=== PATIENT | male | born 1965 | race Asian ===

== ENCOUNTER 2019-11-17 16:22 | Inpatient (IN) | payer MEDICAID, SELFPAY ==
[~2019-11-17] VITALS: Ht 167.6 cm; Wt 63.5 kg
[2019-11-17 16:34] VITALS: Ht 167.6 cm; Wt 63.5 kg
--- NOTE | 2019-11-17 16:47 | NUR ---
PT BIB SELF, C/O COUGH X10 DAYS, SOB, FEVER, CHEST PAIN SINCE TODAY. PT DENIES TRAVELING OR IN CONTACT WITH ANY ONE SICK. PT PALCED ON AUTO BODY REPAIR TECHNICIAN, PULSE OX, AND GOWN. DR. CAPONE AT BEDSIDE FOR MSE. PT MINIMAL SWEDISH SPEAKER, SPEAKS VITNAMESE. PLACED ON DROPLET ISOLATION, PT WEARING MASK. PT AAOX4, RESTING IN BED WITH EYES CLOSED, GASPING FOR AIR. SPEAKING WITHOUT DIFFICULTY TO ELY WILLSON IN VITNAMESE. WILL CONTINUE TO MONITOR.
--- NOTE | 2019-11-17 17:01 | NUR ---
AWAITING TO COLLECT URINE FROM PT, URINAL AT BEDSIDE.
--- NOTE | 2019-11-17 17:01 | NUR ---
LAB AT BEDSIDE.
--- NOTE | 2019-11-17 17:13 | NUR ---
PT SPO2 AT 95% ROOM AIR AT THIS TIME.
[2019-11-17 17:24] LABS: PLATELET COUNT 356 x10^3mcL (130-400); RED CELL DISTRIBUTION WIDTH 14.1 % (11.5-14.5)
--- NOTE | 2019-11-17 17:40 | NUR ---
XRAY AT BEDSIDE.
[2019-11-17 17:51] LABS: microscopic required? YES; urine erythrocyte TRACE (NEGATIVE)
[2019-11-17 18:03] LABS: CALCIUM 8.2 mg/dL (8.5-10.1); CARBON DIOXIDE 25.7 mmol/L (21-32); CHLORIDE SERUM 98 mmol/L (98-107); CREATININE SERUM 1.1 mg/dL (0.7-1.3); GFR1 > 60 mL/min; GLUCOSE SERUM 116 mg/dL (74-106); POTASSIUM SERUM 3.8 mmol/L (3.5-5.1); SODIUM SERUM 132 mmol/L (136-145)
[2019-11-17 18:08] LABS: ALBUMIN 1.6 g/dL (3.4-5.0); ALKALINE PHOSPHATASE 70 U/L (46-116); ALT/SGPT 39 U/L (16-63); AST/SGOT 58 U/L (15-37); BILIRUBIN TOTAL 1.1 mg/dL (0.20-1.00); LACTIC DEHYDROGENASE (LDH) 191 U/L (100-190); TOTAL PROTEIN, SERUM 6.2 g/dL (6.4-8.2)
[2019-11-17 18:13] LABS: BAND NEUTROPHIL 4 % (0-10); METAMYELOCTE 1 % (0-2); MONOCYTE 2 % (0-7); MYELOCYTE 1 % (0-2); PLATELET MORPHOLOGY PLATELETS NORMAL; SEGMENTED NEUTROPHILS 87 % (37-75); rbc morphology (normal/abnorm) NORMAL (NORMAL)
[2019-11-17 18:34] LABS: C REACTIVE PROTEIN 33.1 mg/dL (<=0.9)
--- NOTE | 2019-11-17 18:42 | NUR ---
MADE DR. CAPONE AWARE OF PT 102.1 F FEVER, PER MD TO GIVE TYLENOL.
--- NOTE | 2019-11-17 19:14 | NUR ---
REPORT GIVEN TO AIRAM BARRIGA
--- NOTE | 2019-11-17 19:22 | NUR ---
REPORT GIVEN TO FABIO BARRIGA
--- NOTE | 2019-11-17 19:45 | NUR ---
RECEIVED PT VIA GURJOSEPHINE FROM E/D, ACCOMPANIED BY RN AND TRANSPORTER. PT ABLE TO TRANSFER HIMSELF FROM GURNEY TO BED, BUT BECAME OBTUNDED AFTERWARDS; PT ONLY RESPONDS TO PAIN; UNABLE TO INTERVIEW EVEN W/ BANQUET SET UP PERSON PHONE PLACED NEXT TO EAR; RECEIVED THE REST OF INFORMATION FROM DAUGHTER, PACO, THROUGH TELEPHONE CALL; DAUGHTER REVEALED THAT PT SMOKES 1/2 PPD, AND DOES UNKNOWN DRUGS, AND WISHES FOR HER FATHER TO BE TESTED. ON TELE # 4, SR + PACs, HR 78, NO S/S CHEST PAIN OR DISCOMFORT AT THIS TIME. SCD BY BEDSIDE. LEFT LUNG CLEAR, RIGHT LUNG DIM, CHEST RISING EVENLY, SHALLOW BREATHING, 2LNC, 95%. ABD SOFT, FLAT, NON-TENDER, NORMOACTIVE BOWEL SOUNDS X 4 QUADS, LAST BM UNKNOWN, ASPIRATION PRECAUTIONS IN PLACE 2/2 ALOC. AMBULATORY @ BASELINE, FALL RISK PROTOCOL IN PLACE. IV SITE LFA 20G, CDI. UNABLE TO ORIENT PT TO ANYTHING D/T ALOC. SIDE RAILS UP X 2, BED IN LOW POSITION, CALL LIGHT WITHIN REACH. WILL ENDORSE TO NITHYA GUZMAN.
[2019-11-17 20:44] VITALS: BP 99/68
--- NOTE | 2019-11-17 22:45 | NUR ---
PT WOKE UP AND TALKING. PT ORIENTED TO PERSON AND PLACE AT THIS TIME AND HE IS TALKING ABOUT HIS DAUGHTER. PT REQUESTED TO HAVE TV TURNED ON. NO SOB NOTED AT THIS TIME.
[2019-11-18 03:16] LABS: AMPHETAMINE QUAL UR NONE DETECTED (See below)
[2019-11-18 05:28] VITALS: BP 135/79
--- NOTE | 2019-11-18 05:30 | NUR ---
PT SLEPT IN LONG INTERVALS. HE HAD NO EPISODE OF SOB OR RESP DISTRESS. PT BECAME MORE AWAKE AND ORIENTED LATER IN THE NIGHT. HE HAD NO C/O PAIN. ALL NEEDS ATTENDED TO. PT ON DROPLET ISOLATION.
--- NOTE | 2019-11-18 07:25 | NUR ---
RECEIVED PT FROM GAYATHRI BARRIGA. PT IS AWAKE, A/OX4, LAYING IN BED. PT ON 2L NC, NO SOB OR DISTRESS NOTED. IV D5NS 80 CC/HR IN LFA. CDI AND PATENT. PT DENIES PAIN AND CHEST PAIN. PT IS STABLE AT THIS TIME. ALL SAFETY AND COMFORT MEASURES IN PLACE. BED IN LOW POSITION, 2 SIDE RAILS UP, CALL LIGHT WITH IN REACH. ALL QUESTIONS AND CONCERNS ADDRESSED. WILL CONTINUE TO MONITOR PT.
[2019-11-18 07:46] LABS: ALKALINE PHOSPHATASE 81 U/L (46-116); ALT/SGPT 31 U/L (16-63); AST/SGOT 57 U/L (15-37); BILIRUBIN TOTAL 1.2 mg/dL (0.20-1.00); CARBON DIOXIDE 25.1 mmol/L (21-32); CHLORIDE SERUM 104 mmol/L (98-107); CREATININE SERUM 0.9 mg/dL (0.7-1.3); GFR1 > 60 mL/min; GLUCOSE SERUM 108 mg/dL (74-106); SODIUM SERUM 139 mmol/L (136-145)
[2019-11-18 07:48] LABS: ALBUMIN 1.4 g/dL (3.4-5.0); TOTAL PROTEIN, SERUM 5.7 g/dL (6.4-8.2)
[2019-11-18 08:00] VITALS: BP 121/83
--- NOTE | 2019-11-18 09:10 | NUR ---
IN TO ADMINISTER SCHEDULED MEDS, TAKE VITALS, AND DELIVER BREAKFAST. ALL QUESTIONS AND CONCERNS ADDRESSED. WILL CONTINUE TO MONITOR PT.
[2019-11-18 09:30] LABS: BASOPHIL % 0.2 % (0-2); PLATELET COUNT 353 x10^3mcL (130-400); RED CELL DISTRIBUTION WIDTH 12.9 % (11.5-14.5)
[2019-11-18 12:00] VITALS: BP 130/96
--- NOTE | 2019-11-18 17:40 | NUR ---
IN TO SEE PT, ASSESS VITAL SIGNS, AND DELIVER DINNER. PT IS STABLE. ALL COCNERNS AND NEEDS MET. WILL CONTINUE TO MONITOR PT.
[2019-11-18 17:44] VITALS: BP 143/91
--- NOTE | 2019-11-18 17:45 | NUR ---
IN TO SEE PT TO ADMINISTER PAIN MEDICATION FOR PAIN IN CHEST AND BACK. DAUGHTER, AZIZA CALLED AND SPOKE TO ME ABOUT GETTING A SPINNER FIXER FOR THE PT. DAUGHTER WANTED AN UPDATE ON THE POC. ALL QUESTIONS AND CONCERNS ADDRESSED. WILL CONTINUE TO MONITOR PT.
--- NOTE | 2019-11-18 19:20 | NUR ---
RECEIVED PT RESTING IN BED, NO ACUTE DISTRESS NOTED. PT AOX4, DENIES JARVIS/DIZZINESS. TELE #4, SR, DENIES CP. PULSES PALPABLE BILAT, DENIES NUMBNESS/TINGLING IN FEET. RESP EVEN AND UNLABORED ON 2LNC, COURSE CRACKLES RT LOBE, CTA LEFT LOBE. NONPRODUCTIVE COUGH. PT ON CONTINUOUS PULSE OX. DENIES ABD PAIN. VOIDS WITH URINAL AT BEDSIDE, ORANGE/PEACH URINE. AMB AT BASELINE. SKIN INTACT .IV SITE TO THE GIANNI, D5NS @ 80ML/HR. NO REDNESS, SWELLING OR PAIN NOTED. PT ON ZITHROMAX AND ROCPEHIN. ALL COMFORT AND SAFETY MEASURES PROVIDED FOR, CALL LIGHT WITHIN REACH, BED IN LOWEST POSITION, WILL CONTINUE TO MONITOR.
--- NOTE | 2019-11-18 19:30 | NUR ---
REPORT GIVEN TO ROSALIO BARRIGA. PT REMAINED STABLE THROUGHT SHIFT. ALL QUESTIONS AND COCNERNS ADDRESSED. ALL CARES ENDORSED.
[2019-11-18 20:45] VITALS: BP 11/82; BP 111/82
--- NOTE | 2019-11-19 00:30 | NUR ---
PT REPORTING JARVIS, WILL MEDICATE WITH TYLENOL.
[2019-11-19 01:10] VITALS: BP 130/89
[2019-11-19 05:00] VITALS: BP 122/84
--- NOTE | 2019-11-19 05:15 | NUR ---
PT RESTED IN INTERVALS DURING SHIFT, NO ACUTE CHANGES OCCURRING OVERNIGHT. PT REMAINS ON 2LNC, REPORTS INTERMITTENT SOB ALTHOUGH O2 SAT REMAINS WNL. PT REMAINS AFEBRILE, ABLE TO AMBULATE OT THE RESTROOM WITHOUT ASSISTANCE. IV SITE REMAINS PATENT, NO REDNESS, SWELLING OR PAIN NOTED. PT REPORTS DIARRHEA X2. AL COMFORT AND SAFETY MEASURES PROVIDED FOR, CALL LIGHT WITHIN REACH, BED IN LOWEST POSITION, WILL CONTINUE TO MONITOR.
[2019-11-19 06:45] LABS: PLATELET COUNT 300 x10^3mcL (130-400); RED CELL DISTRIBUTION WIDTH 14.3 % (11.5-14.5)
[2019-11-19 06:46] LABS: ALKALINE PHOSPHATASE 106 U/L (46-116); ALT/SGPT 33 U/L (16-63); AST/SGOT 62 U/L (15-37); BILIRUBIN TOTAL 0.4 mg/dL (0.20-1.00); CALCIUM 8.2 mg/dL (8.5-10.1); CARBON DIOXIDE 25.9 mmol/L (21-32); CHLORIDE SERUM 102 mmol/L (98-107); CREATININE SERUM 0.9 mg/dL (0.7-1.3); GFR1 > 60 mL/min; GLUCOSE SERUM 139 mg/dL (74-106); MAGNESIUM 2.3 mg/dL (1.8-2.4); POTASSIUM SERUM 4.1 mmol/L (3.5-5.1); SODIUM SERUM 136 mmol/L (136-145)
[2019-11-19 06:47] LABS: ALBUMIN 1.4 g/dL (3.4-5.0)
--- NOTE | 2019-11-19 07:40 | NUR ---
REPORT TAKEN FROM ACCOUNT SOLUTIONS ANALYST NURSE, WILL CONTINUE TO MONITOR.
--- NOTE | 2019-11-19 09:03 | NUR ---
LAB REPORTS WBC OF 31, FURNACE REPAIR MECHANIC PROVIDER FOR [employer] PAGED AT THIS TIME.
--- NOTE | 2019-11-19 09:15 | NUR ---
SPOKE TO DR. CLAYTON AND MADE HIM AWARE OF ELEVATED WBC, NO NEW ORDERS AT THIS TIME.
[2019-11-19 09:53] LABS: BAND NEUTROPHIL 2 % (0-10); BASOPHIL 0 % (0-2); MONOCYTE 4 % (0-7); SEGMENTED NEUTROPHILS 89 % (37-75)
[2019-11-19 09:55] LABS: rbc morphology (normal/abnorm) ABNORMAL (NORMAL)
[2019-11-19 09:56] LABS: PLATELET MORPHOLOGY PLATELETS INCREASED
[2019-11-19 12:00] VITALS: BP 124/88
[2019-11-19 15:04] VITALS: BP 122/84
[2019-11-19 16:30] VITALS: BP 120/80
--- NOTE | 2019-11-19 19:15 | NUR ---
REPORT GIVEN TO PIG HANDLER NURSE, CARE ENDORSED
--- NOTE | 2019-11-19 20:12 | NUR ---
PT SEEN, RESTING IN BED, ALERT AND ORIENTED, DENIES HEADACHE OR DIZZINESS, LUNG SOUNDS WITH FINE CRACKLES ON RT SIDE, LEFT SIDE LUNG SOUNDS CLEAR, SOB ON EXERTION, ON TELE#4 SB WITH PAC'S, DENIES CHEST PAIN, MILD GENERALIZED WEAKNESS, ON O2 2L VIA NC, ABD SOFT AND FLAT WITH ACTIVE BS, NO BM AT THIS TIEM, NO DISTRESS NOTED, WILL KEEP TO MONITOR.
[2019-11-19 21:29] VITALS: BP 120/60
[2019-11-20 04:45] VITALS: BP 147/88
--- NOTE | 2019-11-20 06:25 | NUR ---
pt awake and resting in bed, awake most of night due to on and off cough, sob on exertion, on o2 2l via nc with spo2:98%, sl to toni, remain on droplet isolation, on laboratory monitor with sb or nsr with pac's, needy at time.
[2019-11-20 06:49] LABS: PLATELET COUNT 284 x10^3mcL (130-400)
[2019-11-20 06:54] LABS: CARBON DIOXIDE 25.3 mmol/L (21-32); CHLORIDE SERUM 103 mmol/L (98-107); CREATININE SERUM 0.9 mg/dL (0.7-1.3); GFR1 > 60 mL/min; GLUCOSE SERUM 142 mg/dL (74-106); SODIUM SERUM 136 mmol/L (136-145)
--- NOTE | 2019-11-20 07:30 | NUR ---
RECEIVED REPORT FROM NIGHT NURSE Pt LYING IN BED A&O X3. ON TELE MONITOR 4 NSR DENIES ANY CHEST PAIN OR PRESSURE AT THIS TIME. RECEIVED ON 2L NC DENIES SOB AT THIS TIME. FINE CRACKLES HEARD BILAT. IV ON GIANNI PATENT AND INTACT. Pt DENIES ANY PAIN. DRY COUGH NOTED. ALL NEEDS ATTENDED TO. BED IN LOWEST POSITION CALL LIGHT WITHIN REACH. WILL CONTINUE TO MONITOR.
[2019-11-20 07:31] LABS: RED CELL DISTRIBUTION WIDTH 14.7 % (11.5-14.5)
[2019-11-20 07:40] VITALS: BP 133/82
--- NOTE | 2019-11-20 09:00 | NUR ---
ADMINISTERED SCHEDULED MEDS Pt C/O 03/17 GENERALIZED PAIN ADMINISTERED NORCO PO PER OCT Pt TOLERATED WELL NO ADVERSE REACTIONS NOTED. ALL NEEDS ATTENDED TO. SAFETY PRECAUTIONS IN PLACE
[2019-11-20 09:33] LABS: ATYPICAL LYMPH 4 %; BAND NEUTROPHIL 4 % (0-10); MONOCYTE 2 % (0-7); SEGMENTED NEUTROPHILS 90 % (37-75)
[2019-11-20 09:38] LABS: PLATELET MORPHOLOGY PLATELETS NORMAL
[2019-11-20 10:02] LABS: rbc morphology (normal/abnorm) ABNORMAL (NORMAL)
--- NOTE | 2019-11-20 10:39 | NUR ---
DR CLAYTON AT BEDSIDE UPDATING Pt ON CARE COVID-19 CAME BACK NEGATIVE
[2019-11-20] MEDS ORDERED: VENTOLIN H0.09 MG/A1 IH (10:46)
[2019-11-20] MEDS ORDERED: SYMBICORT1 AE3 IH (10:46)
[2019-11-20] MEDS ORDERED: DELTASONE20 MG PO (10:50)
[2019-11-20] MEDS ORDERED: LEVAQUIN750 MG PO (10:50)
--- NOTE | 2019-11-20 10:50 | NUR ---
TOOK OFF 02 Pt TOLERATING WELL 100% ON RA DENIES ANY SOB CHEST RISE EQUAL AND UNLABORED. INSTRUCTED TO CALL LIF FEELING SOB. WILL COTNIUE TO MONITOR.
[2019-11-20 11:02] VITALS: BP 133/82
--- NOTE | 2019-11-20 12:20 | NUR ---
DISCHARGE INSTRUCTION GIVEN TO Pt UNDERSTANDING WAS VERBALIZED. IV D/C'D CATHETER INTACT DRESSING APPLIED. TELE MONITOR REMOVED AND GIVEN TO WOOD CAR BUILDER. MEAL PROVIDED TO TAKE WITH HIM TO HIS FRIENDS HOUSE Pt IDENTIFIES HOMELESS AND IS STAYING WITHI FRIENDS. RESOURCES GIVEN TO Pt. ALL QUESTIONS AND CONCERNS ADDRESSED. Pt STABLE FOR DISCHARGE. WHEELED Pt TO LOBBY WITH FRIENDS.
== END 2019-11-20 12:24 | disposition home or self-care (01) | DRG 139 ==
LOC: ED 16:22 → DU 18:29
PROVIDERS: Emergency Medicine; Internal Medicine; ADMIT Internal Medicine Pulmonary Disease
DX: J18.9 Pneumonia, unspecified organism (principal); J96.01 Acute respiratory failure with hypoxia; J44.0 Chronic obstructive pulmonary disease with (acute) lower respiratory infection; J44.1 Chronic obstructive pulmonary disease with (acute) exacerbation; J98.01 Acute bronchospasm; F17.210 Nicotine dependence, cigarettes, uncomplicated; Z22.322 Carrier or suspected carrier of Methicillin resistant Staphylococcus aureus
CPT/HCPCS: 36600; 87804; G0378; G0480; J0456; J0696; J1650; J3370; J3490; J7030; J7042; J7050; J7512; Q0092